=== PATIENT | female | born 1990 | race American Indian/Alaskan Native ===

== ENCOUNTER 2018-08-22 14:59 | Outpatient (CLI) | payer OTHER | END 2018-08-22 15:00 | disposition home or self-care (01) | LOC: LAB 14:59 | DX: Z11.3 Encounter for screening for infections with a predominantly sexual mode of transmission (principal) ==

== ENCOUNTER 2018-10-16 07:29 | Emergency (ER) | payer OTHER ==
[~2018-10-16] VITALS: Ht 154.9 cm; Wt 72.6 kg
== END 2018-10-16 12:40 | disposition home or self-care (01) ==
LOC: ER 07:29
DX: J03.80 Acute tonsillitis due to other specified organisms (principal); B34.9 Viral infection, unspecified

== ENCOUNTER 2019-10-04 04:16 | Emergency (ER) | payer OTHER ==
[~2019-10-04] VITALS: Ht 154.9 cm; Wt 72.6 kg
[2019-10-04] MEDS ORDERED: TAMS0.4C PO (10:02)
[2019-10-04] MEDS ORDERED: CIPRO500 MG PO (10:02)
[2019-10-04] MEDS ORDERED: KETO10TA2 PO (10:04)
== END 2019-10-04 10:16 | disposition home or self-care (01) ==
LOC: ER 04:16
DX: N20.1 Calculus of ureter (principal); R31.0 Gross hematuria

== ENCOUNTER → 2019-10-11 | Outpatient (CLI) | payer OTHER ==
[~2019-10-11] MED LIST: CIPRO500 MG PO; KETO10TA2 PO; TAMS0.4C PO
== END | disposition home or self-care (01) ==
LOC: RAD 10:50
DX: J01.80 Other acute sinusitis (principal)

== ENCOUNTER 2019-10-17 10:31 | Outpatient (CLI) | payer OTHER | END 2019-10-17 10:42 | disposition home or self-care (01) | LOC: LAB 10:31 | DX: E03.8 Other specified hypothyroidism (principal); N83.209 Unspecified ovarian cyst, unspecified side ==

== ENCOUNTER 2019-10-17 10:51 | Outpatient (CLI) | payer OTHER | END 2019-10-17 10:52 | disposition home or self-care (01) | LOC: SONOGRAMA 10:51 | DX: N83.291 Other ovarian cyst, right side (principal) ==

== ENCOUNTER 2020-02-15 09:22 | Outpatient (CLI) | payer OTHER | END 2020-02-15 15:46 | disposition home or self-care (01) | LOC: PPH VACUNA 09:22 → LAB 09:22 | DX: Z23 Encounter for immunization (principal) ==

== ENCOUNTER 2020-11-01 | Outpatient (CLI) | payer OTHER | END 2020-11-01 07:33 | disposition home or self-care (01) | LOC: PPH VACUNA | DX: Z23 Encounter for immunization (principal) ==

== ENCOUNTER 2020-11-21 08:00 | Outpatient (CLI) | payer OTHER | END 2020-11-21 08:30 | disposition home or self-care (01) | LOC: PPH VACUNA 08:00 | DX: Z23 Encounter for immunization (principal) ==

== ENCOUNTER → 2021-02-17 08:02 | Outpatient (CLI) | payer OTHER | END | disposition home or self-care (01) | LOC: LAB 08:02 | PROVIDERS: ATTEND Pediatrics Neonatal-Perinatal Medicine | DX: Z00.00 Encounter for general adult medical examination without abnormal findings (principal) ==

== ENCOUNTER 2021-04-16 09:00 | Outpatient (CLI) | payer OTHER | END 2021-04-16 09:30 | disposition home or self-care (01) | LOC: PPH VACUNA 09:00 | PROVIDERS: ATTEND Emergency Medicine Pediatric Emergency Medicine | DX: Z23 Encounter for immunization (principal) ==

== ENCOUNTER 2021-06-12 08:00 | Outpatient (CLI) | payer OTHER | END 2021-06-12 08:30 | disposition home or self-care (01) | LOC: SONOGRAMA 08:00 → PPH VACUNA 08:00 → SONOGRAMA 08:30 | PROVIDERS: ATTEND Emergency Medicine Pediatric Emergency Medicine | DX: Z23 Encounter for immunization (principal) ==

== ENCOUNTER 2022-02-10 14:05 | Outpatient (CLI) | payer OTHER | END 2022-02-10 14:12 | disposition home or self-care (01) | LOC: LAB 14:05 | PROVIDERS: ATTEND Specialist | DX: E78.9 Disorder of lipoprotein metabolism, unspecified (principal) ==

== ENCOUNTER 2022-02-13 10:09 | Outpatient (CLI) | payer OTHER | END 2022-02-13 10:16 | disposition home or self-care (01) | LOC: RX STUDY 10:09 | PROVIDERS: ATTEND Specialist | DX: N70.11 Chronic salpingitis (principal) ==

== ENCOUNTER 2022-02-18 10:13 | Outpatient (CLI) | payer OTHER | END 2022-02-18 10:18 | disposition home or self-care (01) | LOC: PPH VACUNA 10:13 | PROVIDERS: ATTEND Emergency Medicine Pediatric Emergency Medicine | DX: Z23 Encounter for immunization (principal) ==

== ENCOUNTER → 2022-07-15 09:38 | Outpatient (CLI) | payer OTHER | END | disposition home or self-care (01) | LOC: LAB 09:38 | DX: E66.9 Obesity, unspecified (principal); Z00.00 Encounter for general adult medical examination without abnormal findings; Z13.29 Encounter for screening for other suspected endocrine disorder ==

== ENCOUNTER → 2022-07-17 06:05 | Outpatient (CLI) | payer OTHER | END | disposition home or self-care (01) | LOC: LAB 06:05 | PROVIDERS: ATTEND Pediatrics Neonatal-Perinatal Medicine | DX: R10.9 Unspecified abdominal pain (principal) ==

== ENCOUNTER 2022-11-17 05:30 | Day surgery (SDC) | payer OTHER | END 2022-11-17 11:05 | disposition home or self-care (01) | LOC: CIR.AMB 05:30 | PROVIDERS: ATTEND Orthopaedic Surgery Hand Surgery | DX: D21.12 Benign neoplasm of connective and other soft tissue of left upper limb, including shoulder (principal); M67.432 Ganglion, left wrist; R22.32 Localized swelling, mass and lump, left upper limb; Z20.822 Contact with and (suspected) exposure to COVID-19 ==

== ENCOUNTER 2022-12-03 08:16 | Outpatient (CLI) | payer OTHER | END 2022-12-03 08:18 | disposition home or self-care (01) | LOC: LAB 08:16 | PROVIDERS: ATTEND Specialist | DX: Z13.1 Encounter for screening for diabetes mellitus (principal) ==

== ENCOUNTER 2023-02-05 07:24 | Outpatient (CLI) | payer OTHER | END 2023-02-05 07:33 | disposition home or self-care (01) | LOC: TOM 07:24 | PROVIDERS: ATTEND Otolaryngology Otology & Neurotology | DX: H93.A1 Pulsatile tinnitus, right ear (principal) ==

== ENCOUNTER 2023-03-05 07:13 | Outpatient (CLI) | payer OTHER | END 2023-03-05 07:23 | disposition home or self-care (01) | LOC: PPH VACUNA 07:13 | PROVIDERS: ATTEND Emergency Medicine Pediatric Emergency Medicine | DX: Z23 Encounter for immunization (principal) ==

== ENCOUNTER → 2023-03-24 07:29 | Outpatient (CLI) | payer OTHER ==
[2023-03-24 08:15] LABS: HEMATOCRIT 31.2 % (36.0-45.00); HEMOGLOBIN 10.7 g/dL (12.0-15.00); MEAN CELL VOLUME 90.5 fL (80.00-100.00); MEAN CORPUSCULAR HGB CONC 34.2 g/dl (32.0-36.0); PLATELET COUNT 218 K/uL (150-450); RED BLOOD COUNT 3.45 M/uL (4.00-6.00); RED CELL DISTRIBUTION WIDTH 14.2 % (11.5-14.5)
== END | disposition home or self-care (01) ==
LOC: LAB 07:29
PROVIDERS: ATTEND Specialist
DX: E28.9 Ovarian dysfunction, unspecified (principal)

== ENCOUNTER → 2023-04-05 07:25 | Outpatient (CLI) | payer OTHER ==
[2023-04-05 08:29] LABS: HEMATOCRIT 33.8 % (36.0-45.00); HEMOGLOBIN 11.3 g/dL (12.0-15.00); MEAN CELL VOLUME 91.6 fL (80.00-100.00); MEAN CORPUSCULAR HEMOGLOBIN 30.6 pg (27.00-32.0); MEAN CORPUSCULAR HGB CONC 33.5 g/dl (32.0-36.0); PLATELET COUNT 213 K/uL (150-450); RED BLOOD COUNT 3.69 M/uL (4.00-6.00); RED CELL DISTRIBUTION WIDTH 14.3 % (11.5-14.5)
== END | disposition home or self-care (01) ==
LOC: LAB 07:25
PROVIDERS: ATTEND Specialist
DX: D64.9 Anemia, unspecified (principal)

== ENCOUNTER → 2023-04-15 07:25 | Outpatient (CLI) | payer OTHER ==
[2023-04-15 08:02] LABS: HEMATOCRIT 33.5 % (36.0-45.00); MEAN CELL VOLUME 92.8 fL (80.00-100.00); MEAN CORPUSCULAR HEMOGLOBIN 30.6 pg (27.00-32.0); PLATELET COUNT 194 K/uL (150-450); RED CELL DISTRIBUTION WIDTH 13.9 % (11.5-14.5)
== END | disposition home or self-care (01) ==
LOC: LAB 07:25
PROVIDERS: ATTEND Pediatrics Neonatal-Perinatal Medicine
DX: R79.9 Abnormal finding of blood chemistry, unspecified (principal)

== ENCOUNTER 2023-05-05 14:17 | Outpatient (CLI) | payer OTHER | END 2023-05-05 14:19 | disposition home or self-care (01) | LOC: LAB 14:17 | PROVIDERS: ATTEND Obstetrics & Gynecology Reproductive Endocrinology | DX: Z11.59 Encounter for screening for other viral diseases (principal) ==

== ENCOUNTER → 2023-06-25 08:47 | Outpatient (CLI) | payer OTHER ==
[2023-06-25 09:46] LABS: HEMATOCRIT 35.2 % (36.0-45.00); MEAN CELL VOLUME 92.2 fL (80.00-100.00); MEAN CORPUSCULAR HEMOGLOBIN 31.4 pg (27.00-32.0); MEAN CORPUSCULAR HGB CONC 34.1 g/dl (32.0-36.0); PLATELET COUNT 206 K/uL (150-450); RED BLOOD COUNT 3.82 M/uL (4.00-6.00); RED CELL DISTRIBUTION WIDTH 13.5 % (11.5-14.5)
[2023-06-25 09:53] LABS: PH,URINE 6.5 (5.0-8.0); URINE APPEARANCE Cloudy; URINE BILIRRUBIN Negative (NEGATIVE); URINE BLOOD Small; URINE COLOR Yellow; URINE GLUCOSE Negative (NEGATIVE); URINE LEUKOCYTE Trace; URINE NITRATE Negative; URINE PROTEIN Negative (NEGATIVE)
[2023-06-25 09:54] LABS: URINE BACTERIA 172.6 uL (0.0-1933); URINE EPITHELIAL CELLS 8.3 uL (0.0-38.8); URINE RBC 28.1 uL (0.0-20.8); URINE WBC 14.8 uL (0.0-23.2)
[2023-06-25 10:02] LABS: INR 0.96; PARTIAL THROMBOPLASTIN TIME 29.1 SECONDS (22.0-34.0); PROTHROMBIN TIME 10.1 SECONDS (9.0-11.5)
[2023-06-25 10:11] LABS: ALBUMIN 3.7 gm/dL (3.4-5.0); BILIRUBIN TOTAL 0.67 mg/dL (0.3-1.2); CALCIUM 9.3 mg/dL (8.5-10.1); CREATININE SERUM 0.57 mg/dL (0.55-1.02); GFR 122.92; GLOBULINA 3.1 G/DL (2.4-3.5); POTASSIUM 3.95 mEq/L (3.5-5.1); TOTAL PROTEIN 6.8 gm/dL (6.4-8.2)
== END | disposition home or self-care (01) ==
LOC: LAB 08:47
PROVIDERS: ATTEND Obstetrics & Gynecology Reproductive Endocrinology
DX: E11.9 Type 2 diabetes mellitus without complications (principal); I10 Essential (primary) hypertension; D68.9 Coagulation defect, unspecified; N39.0 Urinary tract infection, site not specified

== ENCOUNTER 2023-08-17 13:25 | Outpatient (CLI) | payer OTHER | END 2023-08-17 13:26 | disposition home or self-care (01) | LOC: LAB 13:25 | PROVIDERS: ATTEND Specialist | DX: E28.9 Ovarian dysfunction, unspecified (principal) ==

== ENCOUNTER 2023-09-16 07:22 | Outpatient (CLI) | payer OTHER ==
[2023-09-16 08:20] LABS: URINE APPEARANCE Clear; URINE BILIRRUBIN Negative (NEGATIVE); URINE BLOOD Moderate; URINE COLOR Yellow; URINE GLUCOSE Negative (NEGATIVE); URINE LEUKOCYTE Negative; URINE NITRATE Negative; URINE PROTEIN Trace (NEGATIVE); URINE UROBILINOGEN 0.2 E.U./dl
[2023-09-16 08:24] LABS: URINE BACTERIA 404.4 uL (0.0-1933); URINE EPITHELIAL CELLS 15.1 uL (0.0-38.8); URINE RBC 36.9 uL (0.0-20.8); URINE WBC 28.2 uL (0.0-23.2)
[2023-09-16 08:24] LABS: HEMATOCRIT 37.1 % (36.0-45.00); HEMOGLOBIN 12.8 g/dL (12.0-15.00); MEAN CELL VOLUME 91.5 fL (80.00-100.00); MEAN CORPUSCULAR HEMOGLOBIN 31.5 pg (27.00-32.0); MEAN CORPUSCULAR HGB CONC 34.4 g/dl (32.0-36.0); PLATELET COUNT 204 K/uL (150-450); RED BLOOD COUNT 4.06 M/uL (4.00-6.00)
[2023-09-16 09:03] LABS: TSH 0.335 uIU/mL (0.358-3.74)
[2023-09-16 09:26] LABS: RH POSITIVE
[2023-09-16 15:48] LABS: RAPID PLASMA REAGIN NONREACTIVE BY RPR (NONREACTIVE)
[2023-09-17 07:10] LABS: HEPATITIS C VIRUS ANTIBODY Non Reactive (Non Reactive)
[2023-09-17 11:12] LABS: VARICELLA ZOSTER VIRUS IGG 351 index (Immune >165)
[2023-09-17 21:05] LABS: chla t Negative (Negative); neiss Negative (Negative)
== END 2023-09-16 07:34 | disposition home or self-care (01) ==
LOC: LAB 07:22
PROVIDERS: ATTEND Specialist
DX: Z34.00 Encounter for supervision of normal first pregnancy, unspecified trimester (principal)

== ENCOUNTER 2023-12-09 08:07 | Outpatient (CLI) | payer OTHER | END 2023-12-09 08:08 | disposition home or self-care (01) | LOC: PRENATAL 08:07 | PROVIDERS: ATTEND Obstetrics & Gynecology Maternal & Fetal Medicine | DX: O35.9XX0 Maternal care for (suspected) fetal abnormality and damage, unspecified, not applicable or unspecified (principal); O35.3XX0 Maternal care for (suspected) damage to fetus from viral disease in mother, not applicable or unspecified; O44.02 Complete placenta previa NOS or without hemorrhage, second trimester; O99.830 Other infection carrier state complicating pregnancy; Z3A.20 20 weeks gestation of pregnancy; O09.812 Supervision of pregnancy resulting from assisted reproductive technology, second trimester; Z14.8 Genetic carrier of other disease ==

== ENCOUNTER 2023-12-13 14:42 | Outpatient (CLI) | payer OTHER ==
[2023-12-13 15:19] LABS: HEMATOCRIT 35.3 % (36.0-45.00); HEMOGLOBIN 12.2 g/dL (12.0-15.00); MEAN CORPUSCULAR HEMOGLOBIN 32.9 pg (27.00-32.0); MEAN CORPUSCULAR HGB CONC 34.6 g/dl (32.0-36.0); PLATELET COUNT 189 K/uL (150-450); RED BLOOD COUNT 3.71 M/uL (4.00-6.00); RED CELL DISTRIBUTION WIDTH 14.5 % (11.5-14.5)
== END 2023-12-13 14:46 | disposition home or self-care (01) ==
LOC: LAB 14:42
PROVIDERS: ATTEND Pediatrics
DX: D64.9 Anemia, unspecified (principal)

== ENCOUNTER 2024-01-29 07:14 | Outpatient (CLI) | payer OTHER ==
[2024-01-29 08:15] LABS: HEMOGLOBIN 12.6 g/dL (12.0-15.00); MEAN CELL VOLUME 98.7 fL (80.00-100.00); MEAN CORPUSCULAR HEMOGLOBIN 33.6 pg (27.00-32.0); PLATELET COUNT 208 K/uL (150-450); RED BLOOD COUNT 3.75 M/uL (4.00-6.00); RED CELL DISTRIBUTION WIDTH 13.6 % (11.5-14.5)
[2024-01-29 08:33] LABS: ALBUMIN 2.9 gm/dL (3.4-5.0); BILIRUBIN TOTAL 0.53 mg/dL (0.3-1.2); CALCIUM 9.1 mg/dL (8.5-10.1); CREATININE SERUM 0.44 mg/dL (0.55-1.02); GFR 164.68; GLOBULINA 3.7 G/DL (2.4-3.5); POTASSIUM 3.57 mEq/L (3.5-5.1); TOTAL PROTEIN 6.6 gm/dL (6.4-8.2)
[2024-01-29 08:41] LABS: URINE APPEARANCE Clear; URINE BILIRRUBIN Negative (NEGATIVE); URINE BLOOD NHT; URINE COLOR Yellow; URINE GLUCOSE Negative (NEGATIVE); URINE KETONE Trace (NEGATIVE); URINE LEUKOCYTE Small; URINE NITRATE Negative; URINE PROTEIN 30 (NEGATIVE); URINE UROBILINOGEN 0.2 E.U./dl
[2024-01-29 08:42] LABS: URINE BACTERIA 1877.2 uL (0.0-1933); URINE EPITHELIAL CELLS 60.1 uL (0.0-38.8); URINE RBC 35.7 uL (0.0-20.8); URINE WBC 129.5 uL (0.0-23.2)
[2024-01-29 08:56] LABS: URINE CAST 0.45 uL (0.0-1.40)
== END 2024-01-29 07:20 | disposition home or self-care (01) ==
LOC: LAB 07:14
PROVIDERS: ATTEND Specialist
DX: Z34.00 Encounter for supervision of normal first pregnancy, unspecified trimester (principal)

== ENCOUNTER 2024-03-09 08:07 | Outpatient (CLI) | payer OTHER | END 2024-03-09 08:09 | disposition home or self-care (01) | LOC: PRENATAL 08:07 | PROVIDERS: ATTEND Obstetrics & Gynecology Maternal & Fetal Medicine | DX: O26.849 Uterine size-date discrepancy, unspecified trimester (principal); O36.8199 Decreased fetal movements, unspecified trimester, other fetus; O09.819 Supervision of pregnancy resulting from assisted reproductive technology, unspecified trimester; Z14.8 Genetic carrier of other disease; Z3A.33 33 weeks gestation of pregnancy ==

== ENCOUNTER 2024-04-24 05:18 | Inpatient (IN) | payer OTHER ==
[~2024-04-24] VITALS: Ht 154.9 cm; Wt 3.6 kg
[2024-04-24 04:51] VITALS: BP 112/76
[2024-04-24] MEDS ORDERED: OXYTOCIN 500 ML IV SCH (05:30)
[2024-04-24] MEDS ORDERED: RINGERS SOLUTION,LACTATED 1,000 ML IV SCH (05:30)
[2024-04-24] MEDS ORDERED: AMPICILLIN SODIUM 2,000 MG VIAL IV STA (05:33)
[2024-04-24] MEDS ORDERED: PRENATAL TABLE1 EAC1 PO (05:47)
[2024-04-24 06:25] LABS: HEMATOCRIT 36.3 % (36.0-45.00); HEMOGLOBIN 12.6 g/dL (12.0-15.00); MEAN CELL VOLUME 94.5 fL (80.00-100.00); MEAN CORPUSCULAR HEMOGLOBIN 32.7 pg (27.00-32.0); MEAN CORPUSCULAR HGB CONC 34.6 g/dl (32.0-36.0); PLATELET COUNT 170 K/uL (150-450); RED BLOOD COUNT 3.84 M/uL (4.00-6.00); RED CELL DISTRIBUTION WIDTH 14.3 % (11.5-14.5)
[2024-04-24 06:30] LABS: PH,URINE 7.5 (5.0-8.0); URINE APPEARANCE Clear; URINE BILIRRUBIN Negative (NEGATIVE); URINE BLOOD Negative; URINE COLOR Yellow; URINE GLUCOSE Negative (NEGATIVE); URINE KETONE Negative (NEGATIVE); URINE LEUKOCYTE Small; URINE NITRATE Negative; URINE PROTEIN Negative (NEGATIVE); URINE UROBILINOGEN 0.2 E.U./dl
[2024-04-24 06:31] LABS: URINE BACTERIA 217.8 uL (0.0-1933); URINE EPITHELIAL CELLS 18.9 uL (0.0-38.8); URINE WBC 16.2 uL (0.0-23.2)
[2024-04-24 06:41] LABS: URINE CAST 0.45 uL (0.0-1.40)
[2024-04-24 07:05] LABS: INR < 0.93; PARTIAL THROMBOPLASTIN TIME 32.3 SECONDS (22.0-34.0); PROTHROMBIN TIME 10.1 SECONDS (9.0-11.5)
[2024-04-24 07:18] LABS: ALBUMIN 2.6 gm/dL (3.4-5.0); BILIRUBIN TOTAL 1.09 mg/dL (0.3-1.2); CALCIUM 8.9 mg/dL (8.5-10.1); CREATININE SERUM 0.52 mg/dL (0.55-1.02); GFR 135.8; GLOBULINA 3.2 G/DL (2.4-3.5); POTASSIUM 3.35 mEq/L (3.5-5.1); TOTAL PROTEIN 5.8 gm/dL (6.4-8.2)
[2024-04-24 07:37] VITALS: BP 115/61
[2024-04-24] MEDS ORDERED: AMPICILLIN SODIUM 1,000 MG VIAL IV SCH (09:00)
[2024-04-24] MEDS ORDERED: MEPERIDINE HCL/PF 50 MG/ML VIAL IV STA (10:31)
[2024-04-24] MEDS ORDERED: PROMETHAZINE HCL 25 MG/ML AMPUL IV STA (10:31)
[2024-04-24 10:54] VITALS: BP 114/66
[2024-04-24] MEDS ORDERED: CEFAZOLIN SODIUM 1,000 MG VIAL IV NR (14:30)
[2024-04-24] MEDS ORDERED: CITRIC ACID/SODIUM CITRATE 30 ML BLIST.PACK PO NR (14:30)
[2024-04-24] MEDS ORDERED: ERYTHROMYCIN BASE OPHT 1GM EACH TUBE OP ONE (16:00)
[2024-04-24] MEDS ORDERED: OXYTOCIN 20 UNITS/1000ML RL PIGGYBAG IV ONE (16:00)
[2024-04-24] MEDS ORDERED: MEPERIDINE HCL/PF 50 MG/ML VIAL IM PRN (16:45)
[2024-04-24] MEDS ORDERED: PROMETHAZINE HCL 50 MG/ML AMPUL IM PRN (16:45)
[2024-04-24] MEDS ORDERED: MORPHINE SULFATE 4 MG/ML VIAL IV ONE (17:45)
[2024-04-24 19:32] VITALS: BP 115/68
[2024-04-24] MEDS ORDERED: CEFAZOLIN SODIUM 1,000 MG VIAL IV SCH (20:00)
[2024-04-25] VITALS: BP 114/76
[2024-04-25 01:45] LABS: HEMATOCRIT 37.7 % (36.0-45.00); HEMOGLOBIN 12.9 g/dL (12.0-15.00); MEAN CELL VOLUME 95.5 fL (80.00-100.00); MEAN CORPUSCULAR HEMOGLOBIN 32.8 pg (27.00-32.0); MEAN CORPUSCULAR HGB CONC 34.3 g/dl (32.0-36.0); PLATELET COUNT 171 K/uL (150-450); RED BLOOD COUNT 3.95 M/uL (4.00-6.00); RED CELL DISTRIBUTION WIDTH 14.4 % (11.5-14.5)
[2024-04-25] MEDS ORDERED: ACETAMINOPHEN 500 MG GEL..CAP PO PRN (07:15)
[2024-04-25] MEDS ORDERED: OxyCODONE HCL/APAP UD (PERCOCET) PO PRN (07:15)
[2024-04-25] MEDS ORDERED: IBUprofen 800 MG TABLET PO PRN (07:30)
[2024-04-25 08:20] VITALS: BP 98/62
[2024-04-25 15:56] VITALS: BP 97/62
[2024-04-26] VITALS: BP 102/69
[2024-04-26] MEDS ORDERED: IBUPROFEN800 MG PO (07:59)
[2024-04-26 08:37] VITALS: BP 119/68
== END 2024-04-26 14:01 | disposition home or self-care (01) | DRG 788 ==
LOC: LDR 05:18 → OB/GYN 05:18 → O/R 15:33 → OB/GYN 16:15
PROVIDERS: ADMIT Specialist; ATTEND Specialist
PROC: 4A1HXCZ Monitoring of Products of Conception, Cardiac Rate, External Approach (ICD-10-PCS; 2024-04-24)
PROC: 10D00Z1 Extraction of Products of Conception, Low, Open Approach (ICD-10-PCS; principal; 2024-04-24 15:30)
DX: O62.0 Primary inadequate contractions (principal); O62.2 Other uterine inertia; O99.824 Streptococcus B carrier state complicating childbirth; Z3A.40 40 weeks gestation of pregnancy; Z37.0 Single live birth; Z20.822 Contact with and (suspected) exposure to COVID-19